=== PATIENT | female | born 1960 | race Two or more races ===

== ENCOUNTER 2021-10-06 13:20 | Emergency (ER) | payer OTHER ==
[2021-10-06 13:33] VITALS: BP 164/86; PULSE 80; TEMP 98.3; BMI 38.7
[2021-10-06] MEDS ORDERED: ALBUTEROL SO4 2.5/IPRATROPIUM 0.5 INH SOL 3 ML VIAL.NEB. NEB ONE (15:48)
[2021-10-06] MEDS: ALBUTEROL SO4 2.5/IPRATROPIUM 0.5 INH SOL 3 ML VIAL.NEB. NEB SCH (15:53)
[2021-10-06 17:12] LABS: BASO % 0.4 % (0-2.0); EOS % 3.3 % (0-4.5); HEMATOCRIT 42.6 % (32.4-45.2); HEMOGLOBIN 14.2 GM/dL (10.7-15.3); LYMPH % 28.3 % (8-40); MCH 28.3 pg (25.7-33.7); MCHC 33.3 g/dl (32.0-36.0); MEAN CELL VOLUME 84.9 fl (80-96); MEAN PLT VOLUME 9.3 fl (7.5-11.1); MONO % 11.9 % (3.8-10.2); NEUT % 56.1 % (42.8-82.8); PLATELET COUNT 211 10^3/uL (134-434); RBC 5.01 M/mm3 (3.60-5.2); RDW 13.4 % (11.6-15.6); WHITE BLOOD COUNT 4.5 K/mm3 (4.0-10.0)
[2021-10-06 17:28] LABS: CHLORIDE 101 mmol/L (98-107); SODIUM 137 mmol/L (136-145)
[2021-10-06 17:30] LABS: CALCIUM 9.3 mg/dL (8.5-10.1)
[2021-10-06 17:31] LABS: ALBUMIN 3.9 g/dl (3.4-5.0); ANION GAP 6 MMOL/L (8-16); BLOOD UREA NITROGEN 7.4 mg/dL (7-18); CO2 30 mmol/L (21-32); GLUCOSE,RANDOM 85 mg/dL (74-106)
[2021-10-06 17:34] LABS: CREATININE 0.6 mg/dL (0.55-1.3); SGOT/AST 30 U/L (15-37); SGPT/ALT 33 U/L (13-61)
[2021-10-06 17:35] LABS: BILIRUBIN,TOTAL 0.5 mg/dL (0.2-1)
[2021-10-06 17:37] LABS: ALK PHOS 117 U/L (45-117)
[2021-10-06] MEDS ORDERED: ACETAMINOPHEN 325 MG TABLET (FP) PO ONE (20:32)
[2021-10-06] MEDS ORDERED: ACETAMINOPHEN 325 MG TABLET (FP) ONE (20:37)
== END 2021-10-06 20:57 | disposition home or self-care (01) ==
LOC: JER 13:20
DX: R06.02 Shortness of breath (principal)
CPT/HCPCS: 36415; 71045-TC-FY; 71275-TC; 80053; 82550; 84484; 85025; 85379; 93005; 93010; 99285-25; C9803; Q9967; U0003; U0005